=== PATIENT | male | born 1965 | race Caucasian/White ===

== ENCOUNTER → 2017-07-28 09:58 | Outpatient (CLI) | payer SELFPAY | END | disposition home or self-care (01) | LOC: D.MRI 09:30 | DX: M25.571 Pain in right ankle and joints of right foot (principal) ==

== ENCOUNTER → 2018-06-15 10:06 | Outpatient (CLI) | payer BC ==
--- NOTE | ~2018-06-15 | EC ---
PATIENT:VANESSA JACKSON DATE OF SERVICE: 06/15/18 SEX: M MEDICAL RECORD: [id number] DATE OF : 61 LOCATION:[facility] AGE OF PATIENT: 53 ADMISSION DATE: 06/15/18 REFERRING PHYSICIAN: INTERPRETING PHYSICIAN: ELIZABETH MASON MD ECHOCARDIOGRAM REPORT ECHO CHARGES 4 ECHO COMPLETE Date: 06/15 CLINICAL DIAGNOSIS: CAD, HTN ECHOCARDIOGRAPHIC MEASUREMENTS (adult normal given) AC root (d.<3.7cm) 2.8 cm LV Septum d (<1.2 cm> 1.1 cm Valve Excursion 1.4 cm LV Septum (systole) 1.3 cm Left Atria (s.<4.0cm> 2.7 cm LVPW d(<1.2cm) 1.1 cm RV (d.<2.3cm) 3.1 cm LVPW (sytole) 1.1 cm LV diastole(<5.6CM) 4.4 cm MV E-F(>70mm/sec) 1.2 cm LV systole 3.3 cm LVOT Diameter 2.0 cm MV exc.(>10mm) cm Est.ejection fraction (50-75%) % DOPPLER: LVIT cm/sec A 54 cm/sec E 71 cm/sec LA cm/sec RVSP 26.6 mmHg LVOT 107 cm/sec AOP1/2T m/s Asc. Ao 132 cm/sec RVOT 55 cm/sec RA cm/sec PA 102 cm/sec AV Gradient Peak 7.0 mmHg AV Mean 0.8 mmHg AV Area 2.3 cm MV Gradient Peak 3.6 mmHg MV Mean 1.2 mmHg MV Area cm COMMENTS: Sewer Digger: Christy [facility] Glue Machine Operator: Ilya Mason TAPE# PACS Pericardial Effusion N DATE OF SERVICE: PROCEDURE: Transthoracic echocardiogram. FINDINGS: 1. The left ventricle has mild left ventricular hypertrophy. The ejection fraction is 60%. Inflow characteristics are normal. 2. The left atrium is normal. 3. The aortic valve is normal. 4. The mitral valve is normal. ECHOCARDIOGRAM REPORT [id number] VANESSA JACKSON 5. The tricuspid valve is normal. 6. The right ventricle is mildly dilated. 7. The right atrium is upper limits of normal to mildly dilated. 8. 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 9. The pericardium is normal. 10. The right ventricular systolic pressures are normal. 11. The IVC was not well demonstrated, but appears to be normal in size. CONCLUSIONS: This is a normal echocardiogram for the patient's stated age. TRANSINT:[id number] Voice Confirmation ID: [id number] DOCUMENT ID: [id number] ELIZABETH MASON MD at 1011 CC: [id number] DICTATION DATE: 06/16/18819 DIGITAL ANALYST: 06/16/18 0846 DEP CLI 06/15/18 [facility] [address] [place] [address]
== END | disposition home or self-care (01) ==
LOC: D.ECHO 10:06
DX: I25.10 Atherosclerotic heart disease of native coronary artery without angina pectoris (principal); I10 Essential (primary) hypertension; E78.5 Hyperlipidemia, unspecified; G47.33 Obstructive sleep apnea (adult) (pediatric); E80.4 Gilbert syndrome